=== PATIENT | male | born 1960 | race Caucasian/White ===

== ENCOUNTER 2018-09-06 06:28 | Day surgery (SDC) | payer OTHER ==
[2018-09-06] MEDS ORDERED: BUPIVACAINE 0.25% (MPF) 30 ML INJ ×2 (06:31→09:13)
[2018-09-06] MEDS ORDERED: CEFAZOLIN 2 GM/50 ML (PMX) 50 ML IVPB (07:00)
[2018-09-06] MEDS ORDERED: SOD CHLORIDE 0.9% 1,000 ML IV (07:00)
[2018-09-06] MEDS ORDERED: PROPOFOL 20 ML (08:58)
[2018-09-06] MEDS ORDERED: LIDOCAINE 2% (SDV) 5 ML INJ (08:58)
[2018-09-06] MEDS ORDERED: ETOMIDATE 20 MG INJ (08:58)
[2018-09-06] MEDS ORDERED: MIDAZOLAM 1 MG/ML 2 ML INJ (08:58)
[2018-09-06] MEDS ORDERED: DEXAMETHASONE 4 MG/ML 1 ML INJ (09:13)
[2018-09-06] MEDS ORDERED: CEFAZOLIN 1 GM INJ (09:13)
[2018-09-06] MEDS ORDERED: ONDANSETRON 4 MG INJ (09:13)
[2018-09-06] MEDS ORDERED: KETOROLAC 30 MG INJ (09:14)
[2018-09-06] MEDS ORDERED: FENTAnyl 50 MCG/ML VIAL (09:21)
[2018-09-06] MEDS ORDERED: HYDROmorphONE 1 MG/5 ML IV SYRINGE IV (10:00)
[2018-09-06] MEDS: HYDROmorphONE 1 MG/5 ML IV SYRINGE IV (10:54)
[2018-09-06] MEDS: IBUPROFEN 800 MG TAB PO (12:09)
== END 2018-09-06 12:55 | disposition home or self-care (01) ==
LOC: SDS 06:28
DX: K40.30 Unilateral inguinal hernia, with obstruction, without gangrene, not specified as recurrent (principal)
CPT/HCPCS: 49507